=== PATIENT | female | born 1995 | race Two or more races ===

== ENCOUNTER 2020-07-25 04:25 | Emergency (ER) | payer MEDICAID, OTHER ==
[~2020-07-25] VITALS: Ht 162.6 cm; Wt 81.6 kg
[2020-07-25] MEDS ORDERED: SODIUM BICARBONATE 8.4% INJ 50ML SYRINGE IV ONE ×2 (04:26)
[2020-07-25] MEDS ORDERED: EPINEPHrine HCL 1 MG/10 ML SYRG IV ONE ×2 (04:26)
[2020-07-25] MEDS ORDERED: CALCIUM CHLOR(10%) 100MG/ML 10ML SYRINGE IV ONE (04:26)
[2020-07-25] MEDS ORDERED: DEXTROSE (50%) 50ML SYRG IV ONE ×2 (05:22→05:30)
[2020-07-25] MEDS ORDERED: DEXTROSE 50% SYRINGE 50 ML IV ONE ×2 (05:22→05:31)
[2020-07-25 06:00] LABS: Basophils # (auto) 0 10 ^3/uL (0-0.2); Basophils % (auto) 0.1 % (0.0-2.0); Eosinophils # (auto) 0 10 ^3/uL (0-0.8); Hematocrit 37.9 % (36.0-46.0); Hemoglobin 12.2 g/dL (12.2-16.2); Lymphocytes # (auto) 1.5 10 ^3/uL (0.4-5.4); Lymphocytes % (auto) 14.8 % (10.0-50.0); Mean Corpuscular Hgb Conc. 32.1 g/dL (32.0-36.0); Mean Corpuscular Volume 99.8 fL (80.0-100.0); Monocytes # (auto) 0.7 10 ^3/uL (0-1.3); Monocytes % (auto) 6.6 % (0.0-12.0); Neutrophils # (auto) 8.1 10 ^3/uL (1.6-8.6); Neutrophils % (auto) 78.5 % (37.0-80.0); Platelet Count (auto) 179 10^3/uL (140-450); Red Cell Distribution Width 16.9 % (11.8-14.3); White Blood Cell 10.3 10^3/uL (4.4-10.8)
[2020-07-25 06:07] LABS: Urine Bacteria FEW /hpf (None Seen); Urine Blood TRACE /uL (Negative); Urine Hyaline Cast MANY /lpf (0 - 2); Urine Mucus FEW (None Seen); Urine Specific Gravity 1.014 (1.001-1.035); Urine WBC 4 /hpf (0 - 5)
[2020-07-25 06:14] LABS: Albumin 2.2 g/dL (3.4-5.0); Anion Gap 29 (5-15); Blood Alcohol < 3.0 mg/dL (0-5); Blood Urea Nitrogen 43 mg/dL (7-18); Calcium 6.5 mg/dL (8.5-10.1); Carbon Dioxide 13 mmol/L (21-32); Chloride 87 mmol/L (98-107); Glucose 323 mg/dL (74-106); Sodium 129 mmol/L (136-145)
[2020-07-25] MEDS ORDERED: DEXTROSE 10% 1,000 ML IV ONE ×2 (06:14→06:15)
[2020-07-25 06:15] LABS: Amphetamine Screen, Urine NEGATIVE (NEGATIVE); Cannabinoid Screen, Urine NEGATIVE (NEGATIVE)
[2020-07-25 06:17] LABS: Alanine Aminotransferase 49 U/L (13-56); Alkaline Phosphatase 102 U/L (45-117); Aspartate Aminotransferase 82 U/L (15-37); BUN/Creatinine Ratio 21.7; Bilirubin, Total 3.4 mg/dL (0.2-1.0); GFR African American 39 mL/min; GFR Non-African American 33 mL/min; Total Protein 6.8 g/dL (6.4-8.2)
[2020-07-25 06:17] LABS: Barbiturate Scree,Urine NEGATIVE (NEGATIVE); Benzodiazephine Screen, Urine NEGATIVE (NEGATIVE); Cocaine Screen, Urine NEGATIVE (NEGATIVE); Opiate Scree,Urine NEGATIVE (NEGATIVE); Phencyclidine Screen, Urine NEGATIVE (NEGATIVE)
[2020-07-25] MEDS ORDERED: cefTRIAXone 1GM/50ML D5W 50 ML IV ONE ×2 (06:30→08:30)
[2020-07-25] MEDS ORDERED: LORazepam 2MG/ML-1ML VIAL ONE (07:03)
[2020-07-25] MEDS ORDERED: SODIUM BICARBONATE 8.4% INJ 50ML SYRINGE ONE ×3 (07:12→08:08)
[2020-07-25] MEDS ORDERED: FUROSEMIDE 40 MG/4 ML VIAL ONE (07:22)
[2020-07-25] MEDS ORDERED: FUROSEMIDE 40 MG/4 ML VIAL IV ONE ×2 (07:30→08:00)
[2020-07-25] MEDS ORDERED: MIDAZOLAM DRIP 50 mg/50mL 50 ML IV ONE (07:42)
[2020-07-25] MEDS ORDERED: NOREPINEPHRINE 8 MG/250ML KIT 250 ML IV SCH (07:45)
[2020-07-25] MEDS ORDERED: MIDAZOLAM DRIP 50 mg/50mL 50 ML IV SCH (07:45)
[2020-07-25] MEDS ORDERED: fentaNYL Drip 2500mCg/250mlNS 250 ML IV SCH (07:45)
[2020-07-25] MEDS ORDERED: SODIUM BICARBONATE 8.4 % INJ 50ML VIAL IV ONE (08:15)
[2020-07-25] MEDS ORDERED: SODIUM BICARBONATE 50ML VIAL 150 ML in SODIUM CHLORIDE 0.9% 1,000 ML IV SCH (08:30)
[2020-07-25] MEDS ORDERED: AZITHROMYCIN 500MG/ 250ML 250 ML IV ONE (08:30)
[2020-07-25] MEDS ORDERED: EPINEPHrine HCL 250 ML IV SCH (08:30)
[2020-07-25] MEDS ORDERED: EPINEPHrine HCL 250 ML IV ONE (08:30)
[2020-07-25] MEDS ORDERED: EPINEPHrine HCL 1 MG/10 ML SYRG ONE (08:34)
[2020-07-25 08:53] LABS: Lactic Acid w/Reflex 26.8 mmol/L (0.4-2.0)
[2020-07-25 09:00] LABS: INR 5.68 (0.9-1.15)
[2020-07-25] MEDS ORDERED: PROPOFOL 100 ML IV SCH (09:30)
[2020-07-25] MEDS ORDERED: PROPOFOL 100 ML IV ONE (09:34)
[2020-07-25 11:30] VITALS: BP 55/33
== END 2020-07-25 13:16 ==
LOC: ER 04:25 → EDBD 04:25 → ER 13:16
DX: I46.9 Cardiac arrest, cause unspecified (principal); A41.9 Sepsis, unspecified organism; J96.00 Acute respiratory failure, unspecified whether with hypoxia or hypercapnia; Z20.822 Contact with and (suspected) exposure to COVID-19
CPT/HCPCS: 31500; 36415; 36556; 36600; 70450; 71045; 71250; 74176; 80053; 80307; 80320; 81001; 82805; 82962; 83605; 84484; 85025; 85379; 85610; 87040; 87070; 87205; 87426; 92950; 93005; 96365; 96366; 96367; 96368; 96375; 99291; C9803; J0171; J0456; J0696; J1940; J2060; J2250; J2704; J7030; J7042; U0003; 87077; 87186; 94002